=== PATIENT | male | born 1985 | race Caucasian/White ===

== ENCOUNTER 2021-11-20 03:29 | Emergency (ER) | payer OTHER ==
[2021-11-20 03:44] VITALS: BP 140/103; PULSE 76; RESP 16; TEMP 98
[2021-11-20] MEDS ORDERED: IBUPROFEN 600 MG TAB PO STA (04:05)
[2021-11-20] MEDS ORDERED: IBUPROFEN 600 MG STARTER PACK 4 TAB BTL PO STA (04:05)
--- NOTE | 2021-11-20 04:05 | ED ---
Chest Pain HPI - General Chief Complaint: Back Pain/Injury Stated Complaint: Rib Pain - [facility] Time Seen by Provider: 11/20/21 04:04 Source: patient, old records reviewed Mode of arrival: ambulatory Limitations: no limitations - History of Present Illness Initial Comments: This is a 36-year-old male DF for evaluation. Patient was at work. Tried to lift up the leg at work in has some right-sided rib pain right-sided chest pain. No specific injury is noted. Patient just having pain is anterior rib cage. No medical history no traumatic injury noted MD Complaint: chest pain, other (The past) -: hour(s) Pain Location: right chest Pain Radiation: none Severity: moderate Severity scale (1-10): 4 Quality: aching Consistency: intermittent Improves With: nothing Worsens With: nothing Treatments Prior to Arrival: none - Related Data Allergies Allergy/AdvReac Type Severity Reaction Status Date / Time No Known Allergies Allergy Verified 11/20/21 04:15 Review of Systems ROS Statement: Those systems with pertinent positive or pertinent negative responses have been documented in the HPI. ROS Other: All systems not noted in ROS Statement are negative. General Exam Limitations: no limitations General appearance: alert, in no apparent distress Head exam: Present: atraumatic, normocephalic, normal inspection Eye exam: Present: normal appearance, PERRL, EOMI. Absent: scleral icterus, conjunctival injection, periorbital swelling ENT exam: Present: normal exam, mucous membranes moist Neck exam: Present: normal inspection. Absent: tenderness, meningismus, lymphadenopathy Respiratory exam: Present: normal lung sounds bilaterally. Absent: respiratory distress, wheezes, rales, rhonchi, stridor Cardiovascular Exam: Present: regular rate, normal rhythm, normal heart sounds. Absent: systolic murmur, diastolic murmur, rubs, gallop, clicks GI/Abdominal exam: Present: soft, normal bowel sounds. Absent: distended, te nderness, guarding, rebound, rigid Extremities exam: Present: normal inspection, full ROM, normal capillary refill. Absent: tenderness, pedal edema, joint swelling, calf tenderness Back exam: Present: normal inspection Neurological exam: Present: alert, oriented X3, CN II-XII intact Psychiatric exam: Present: normal affect, normal mood Skin exam: Present: warm, dry, intact, normal color. Absent: rash Course Vital Signs 11/20/21 03:39 Temperature 98 F Pulse Rate 76 Respiratory 16 Rate Blood Pressure 140/103 O2 Sat by Pulse 100 Oximetry - Reevaluation(s) Reevaluation #1: Medical record is reviewed Symptoms have been improved here in the ER Patient informed results and questions answered Chest Pain MDM - MDM 36 male to the emergency department for evaluation of right-sided chest wall injury rib injury. Likely musculoskeletal muscle spasm. Patient can be discharged home Disposition Clinical Impression: Rib pain on right side Disposition: HOME SELF-CARE Condition: Good Instructions (If sedation given, give patient instructions): Rib Contusion (ED) Is patient prescribed a controlled substance at d/c from ED?: No Referrals: Theodore Porras MD [Primary Care Provider] - 1-2 days Time of Disposition: 04:00
== END 2021-11-20 05:12 | disposition home or self-care (01) ==
LOC: EC 03:29
DX: R07.81 Pleurodynia (principal); X50.0XXA Overexertion from strenuous movement or load, initial encounter; Y99.0 Civilian activity done for income or pay
CPT/HCPCS: 99283

== ENCOUNTER → 2021-11-21 | Outpatient (CLI) | payer OTHER ==
--- NOTE | 2021-11-21 12:54 | XR ---
EXAMINATION TYPE: XR chest 2V, XR ribs RT DATE OF EXAM: 11/21/2021 COMPARISON: NONE HISTORY: Contusion injury with chest and right-sided rib pain. TECHNIQUE: Frontal and lateral views of the chest are obtained. A frontal and oblique images of the right-sided ribs. FINDINGS: There is no focal air space opacity, pleural effusion, or pneumothorax seen. The cardiac silhouette size is within normal limits. The osseous structures are intact. Dedicated images of the right-sided ribs show no acute displaced fracture. Overlying soft tissue is u nremarkable. IMPRESSION: 1. No acute cardiopulmonary process. 2. No acute displaced right-sided rib fracture.
== END | disposition home or self-care (01) ==
LOC: RADXRMAIN 12:07
PROVIDERS: ATTEND Emergency Medicine
DX: S20.211A Contusion of right front wall of thorax, initial encounter (principal)
CPT/HCPCS: 71046